=== PATIENT | female | born 1995 | race American Indian/Alaskan Native ===

== ENCOUNTER 2022-03-06 16:37 | Emergency (ER) | payer SELFPAY ==
[2022-03-06 17:30] VITALS: BP 121/95
[2022-03-06 18:44] LABS: Bacteria,Urine 1+ /HPF (Negative); Hyaline Casts,Urine 2 /LPF; Mucus,Urine 2+ /HPF
[2022-03-06 18:46] LABS: Color,Urine Yellow (Yellow); WBC,Urine > 182.0 /HPF (0.0-6.0)
--- NOTE | 2022-03-07 00:35 | Emergency Department Report ---
ED Female HPI - General Chief complaint: Abdominal Pain Stated complaint: STI Time Seen by Provider: 03/07/22 00:31 Source: patient Mode of arrival: Ambulatory Limitations: No Limitations - History of Present Illness MD Complaint: dysuria -: days(s) (3) Location: suprapubic (d) Radiation: suprapubic Severity: mild, moderate Quality: burning Consistency: intermittent Worsens with: urination Are you Now?: Yes Associated Symptoms: dysuria. denies: vaginal bleeding, abdominal pain, nausea/vomiting - Related Data Sexually active: No Previous Rx's Medication Instructions Recorded Last Taken Type Nitrofurantoin Petroleum/M-Cryst 100 mg PO Q12HR #20 capsule 03/07/22 Unknown Rx [Macrobid CAP] Phenazopyridine [Pyridium] 200 mg PO TID #9 tab 03/07/22 Unknown Rx Allergies Allergy/AdvReac Type Severity Reaction Status Date / Time No Known Allergies Allergy Verified 03/06/22 17:31 ED Review of Systems ROS: Stated complaint: STI Other details as noted in HPI Comment: All other systems reviewed and negative ED Past Medical Hx - Past Medical History Previous Medical History?: No - Surgical History Past Surgical History?: No - Medications Home Medications: Home Medications Medication Instructions Recorded Confirmed Last Taken Type Nitrofurantoin Petroleum/M-Cryst 100 mg PO Q12HR #20 capsule 03/07/22 Unknown Rx [Macrobid CAP] Phenazopyridine [Pyridium] 200 mg PO TID #9 tab 03/07/22 Unknown Rx ED Physical Exam - General Limitations: No Limitations General appearance: alert, in no apparent distress - Head Head exam: Present: atraumatic, normocephalic - Eye Eye exam: Present: normal appearance - ENT ENT exam: Present: mucous membranes moist - Neck Neck exam: Present: normal inspection - Respiratory Respiratory exam: Present: normal lung sounds bilaterally. Absent: respiratory distress - Cardiovascular Cardiovascular Exam: Present: regular rate, normal rhythm. Absent: systolic murmur, diastolic murmur, rubs, gallop - GI/Abdominal GI/Abdominal exam: Present: soft, tenderness, normal bowel sounds - Extremities Exam Extremities exam: Present: normal inspection - Back Exam Back exam: Present: normal inspection - Neurological Exam Neurological exam: Present: alert, oriented X3 - Psychiatric Psychiatric exam: Present: normal affect, normal mood - Skin Skin exam: Present: warm, dry, intact, normal color. Absent: rash ED Course Vital Signs 03/06/22 17:26 Temperature 98.9 F Pulse Rate 82 Respiratory 16 Rate Blood Pressure 121/95 [Right] O2 Sat by Pulse 100 Oximetry Critical care attestation.: If time is entered above; I have spent that time in minutes in the direct care of this critically ill patient, excluding procedure time. ED Disposition Clinical Impression: UTI (urinary tract infection) Disposition: 30 STILL A PATIENT Is pt being admited?: No Does the pt Need Aspirin: No Condition: Stable Instructions: Urinary Tract Infection, Adult, Abdominal Pain (ED) Prescriptions: Nitrofurantoin Petroleum/M-Cryst [Macrobid CAP] 100 mg PO Q12HR #20 capsule Phenazopyridine [Pyridium] 200 mg PO TID #9 tab Referrals: ZACH CARABALLO MD [Staff Physician] - 3-5 Days
== END 2022-03-07 01:12 | disposition home or self-care (01) ==
LOC: ED 16:37
DX: N39.0 Urinary tract infection, site not specified (principal); Z79.899 Other long term (current) drug therapy
CPT/HCPCS: 81001; 99283